=== PATIENT | female | born 1940 | race Caucasian/White ===

== ENCOUNTER 2022-01-13 13:49 | Emergency (ER) | payer MEDICAID ==
[~2022-01-13] VITALS: Ht 152.4 cm; Wt 44.0 kg
[2022-01-13 15:12] VITALS: BP 123/78
== END 2022-01-13 18:18 | disposition home or self-care (01) ==
LOC: ER 13:49
DX: H61.21 Impacted cerumen, right ear (principal); I10 Essential (primary) hypertension; H40.9 Unspecified glaucoma; Z95.0 Presence of cardiac pacemaker
CPT/HCPCS: 99282